=== PATIENT | female | born 1950 | race Two or more races ===

== ENCOUNTER 2017-04-03 21:43 | Emergency (ER) | payer OTHER ==
[~2017-04-03 21:43] MED LIST: COZAAR50 MG PO; LAC PO; LIPI20 PO; MAC100 PO; METFORMIN HCL850 MG PO; PREDNICOT20 MG PO
== END 2017-04-03 21:56 | disposition left against medical advice (07) ==
LOC: ED 21:43
DX: Z53.21 Procedure and treatment not carried out due to patient leaving prior to being seen by health care provider (principal)

== ENCOUNTER 2017-04-04 09:05 | Emergency (ER) | payer OTHER ==
[~2017-04-04] VITALS: Ht 154.9 cm; Wt 65.0 kg
[2017-04-04 09:08] VITALS: BP 148/62
== END 2017-04-04 11:00 | disposition home or self-care (01) ==
LOC: ED 09:05
DX: S96.911A Strain of unspecified muscle and tendon at ankle and foot level, right foot, initial encounter (principal); E11.9 Type 2 diabetes mellitus without complications; I10 Essential (primary) hypertension; E78.5 Hyperlipidemia, unspecified; X50.1XXA Overexertion from prolonged static or awkward postures, initial encounter; Y93.89 Activity, other specified; Y99.8 Other external cause status; Y92.89 Other specified places as the place of occurrence of the external cause
CPT/HCPCS: J3010; Q0092

== ENCOUNTER 2017-11-13 09:43 | Inpatient (IN) | payer OTHER ==
[~2017-11-13] VITALS: Ht 154.9 cm; Wt 63.5 kg
[2017-11-13 09:50] VITALS: Ht 154.9 cm; Wt 63.5 kg
[2017-11-13 10:23] LABS: BASOPHIL % 0.6 % (0-2); PLATELET COUNT 291 x10^3mcL (130-400); RED CELL DISTRIBUTION WIDTH 12.8 % (11.5-14.5)
[2017-11-13 10:35] LABS: CALCIUM 8.6 mg/dL (8.5-10.1); CARBON DIOXIDE 27.1 mmol/L (21-32); POTASSIUM SERUM 4.1 mmol/L (3.5-5.1)
[2017-11-13 10:39] LABS: BILIRUBIN TOTAL 0.4 mg/dL (0.20-1.00); TOTAL PROTEIN, SERUM 7.6 g/dL (6.4-8.2)
[2017-11-13 12:26] LABS: UA SPECIFIC GRAVITY 1.015 (1.005-1.035); microscopic required? YES; urine erythrocyte NEGATIVE (NEGATIVE)
[2017-11-13 13:01] LABS: MAGNESIUM 2.1 mg/dL (1.8-2.4)
[2017-11-13 13:03] LABS: CHOLESTEROL/HDL RATIO 3.7
[2017-11-13 13:11] VITALS: BP 139/70
[2017-11-13 13:12] LABS: FREE T4 1.22 ng/dL (0.76-1.46); FREE THYROXINE INDEX 2.5 ug/dL (1.4-4.5)
[2017-11-13 13:54] LABS: T3 TOTAL 0.91 ng/mL
[2017-11-13 14:28] LABS: AMPHETAMINE QUAL UR NONE DETECTED (NEG <=1000)
[2017-11-13] MEDS ORDERED: METOPROLOL SUCC25 M2 PO (15:49)
[2017-11-13] MEDS ORDERED: NEURONTIN100 MG PO (15:51)
[2017-11-13] MEDS ORDERED: PHEDML PO (15:53)
[2017-11-13] MEDS ORDERED: LIPI20 PO (15:53)
[2017-11-13 17:35] VITALS: BP 148/79
[2017-11-13 21:29] VITALS: BP 154/71
[2017-11-14 05:43] VITALS: BP 139/71
[2017-11-14 06:33] LABS: CALCIUM 8.6 mg/dL (8.5-10.1); CARBON DIOXIDE 26.7 mmol/L (21-32); CHLORIDE SERUM 104 mmol/L (98-107); CREATININE SERUM 0.7 mg/dL (0.6-1.0); GFR1 > 60 mL/min; GLUCOSE SERUM 119 mg/dL (74-106); POTASSIUM SERUM 4.9 mmol/L (3.5-5.1); SODIUM SERUM 138 mmol/L (136-145)
[2017-11-14 07:10] LABS: BASOPHIL % 0.6 % (0-2); PLATELET COUNT 299 x10^3mcL (130-400); RED CELL DISTRIBUTION WIDTH 12.7 % (11.5-14.5)
[2017-11-14 10:04] VITALS: BP 127/61
[2017-11-14 13:30] VITALS: BP 142/69
[2017-11-14 16:52] VITALS: BP 125/61
[2017-11-14 20:52] VITALS: BP 150/69
[2017-11-15 05:34] VITALS: BP 139/69
[2017-11-15 06:03] LABS: BASOPHIL % 0.5 % (0-2); PLATELET COUNT 315 x10^3mcL (130-400); RED CELL DISTRIBUTION WIDTH 13.1 % (11.5-14.5)
[2017-11-15 06:33] LABS: CALCIUM 8.8 mg/dL (8.5-10.1); CHLORIDE SERUM 97 mmol/L (98-107); CREATININE SERUM 0.8 mg/dL (0.6-1.0); GFR1 > 60 mL/min; GLUCOSE SERUM 111 mg/dL (74-106); POTASSIUM SERUM 4.6 mmol/L (3.5-5.1); SODIUM SERUM 135 mmol/L (136-145)
[2017-11-15] MEDS ORDERED: LEVAQUIN750 MG PO (09:16)
[2017-11-15] MEDS ORDERED: CLINDAMYCIN HC300 MG PO (09:16)
[2017-11-15] MEDS ORDERED: BD LACTINEX1.4 MG PO (09:17)
[2017-11-15 09:20] VITALS: BP 124/64
[2017-11-15 09:42] VITALS: BP 124/64
[2017-11-15] MEDS ORDERED: ROBL PO (10:28)
[2017-11-15 12:18] VITALS: BP 124/64
== END 2017-11-15 13:06 | disposition home or self-care (01) | DRG 152 ==
LOC: ED 09:43 → DU 11:29
PROVIDERS: Emergency Medicine; Family Medicine
DX: J06.9 Acute upper respiratory infection, unspecified (principal); N17.0 Acute kidney failure with tubular necrosis; E44.0 Moderate protein-calorie malnutrition; N39.0 Urinary tract infection, site not specified; B95.1 Streptococcus, group B, as the cause of diseases classified elsewhere; E86.0 Dehydration; I10 Essential (primary) hypertension; E11.9 Type 2 diabetes mellitus without complications; E78.00 Pure hypercholesterolemia, unspecified; Z68.27 Body mass index [BMI] 27.0-27.9, adult; Z79.84 Long term (current) use of oral hypoglycemic drugs
CPT/HCPCS: 82962; 83880; 84439; 94150; J0696; J1885; J1956; J3490; J7030; J7613; J7620; J7644; Q0092

== ENCOUNTER 2018-09-01 18:11 | Emergency (ER) | payer OTHER ==
[~2018-09-01] VITALS: Ht 154.9 cm; Wt 65.3 kg
[~2018-09-01 18:11] MED LIST changes: +BD LACTINEX1.4 MG PO; +CLINDAMYCIN HC300 MG PO; +LEVAQUIN750 MG PO; +METOPROLOL SUCC25 M2 PO; +NEURONTIN100 MG PO; +PHEDML PO; +ROBL PO
[2018-09-01 18:14] VITALS: Ht 154.9 cm; Wt 65.3 kg
[2018-09-01 19:25] LABS: BASOPHIL % 1.2 % (0-2); PLATELET COUNT 226 x10^3mcL (130-400); RED CELL DISTRIBUTION WIDTH 12.5 % (11.5-14.5)
[2018-09-01 19:37] LABS: CALCIUM 9.2 mg/dL (8.5-10.1); CARBON DIOXIDE 26.8 mmol/L (21-32); CREATININE SERUM 1.1 mg/dL (0.6-1.0); POTASSIUM SERUM 4.6 mmol/L (3.5-5.1)
[2018-09-01 19:44] LABS: ALBUMIN 3.5 g/dL (3.4-5.0); BILIRUBIN TOTAL 0.2 mg/dL (0.20-1.00); TOTAL PROTEIN, SERUM 7.1 g/dL (6.4-8.2)
[2018-09-01 21:30] VITALS: BP 140/68
== END 2018-09-01 21:30 | disposition home or self-care (01) ==
LOC: ED 18:11
PROVIDERS: Emergency Medicine
DX: J20.9 Acute bronchitis, unspecified (principal); I10 Essential (primary) hypertension; E11.9 Type 2 diabetes mellitus without complications; E78.00 Pure hypercholesterolemia, unspecified
CPT/HCPCS: 36415; 83880; Q0092

== ENCOUNTER 2018-10-28 10:10 | Emergency (ER) | payer OTHER ==
[~2018-10-28] VITALS: Ht 154.9 cm; Wt 64.4 kg
[2018-10-28 10:12] VITALS: BP 121/83; Ht 154.9 cm; Wt 64.4 kg
== END 2018-10-28 10:54 | disposition home or self-care (01) ==
LOC: ED 10:10
DX: N39.0 Urinary tract infection, site not specified (principal); I10 Essential (primary) hypertension; E11.9 Type 2 diabetes mellitus without complications; E78.00 Pure hypercholesterolemia, unspecified
CPT/HCPCS: J1885

== ENCOUNTER 2018-11-04 09:41 | Emergency (ER) | payer OTHER ==
[~2018-11-04] VITALS: Ht 154.9 cm; Wt 65.3 kg
[2018-11-04 09:48] VITALS: Ht 154.9 cm; Wt 65.3 kg
[2018-11-04 11:27] LABS: CALCIUM 8.5 mg/dL (8.5-10.1); CARBON DIOXIDE 28.1 mmol/L (21-32); CHLORIDE SERUM 101 mmol/L (98-107); CREATININE SERUM 0.8 mg/dL (0.6-1.0); GFR1 > 60 mL/min; GLUCOSE SERUM 159 mg/dL (74-106); POTASSIUM SERUM 3.5 mmol/L (3.5-5.1); SODIUM SERUM 135 mmol/L (136-145)
[2018-11-04 11:31] LABS: ALBUMIN 3.6 g/dL (3.4-5.0); ALKALINE PHOSPHATASE 51 U/L (46-116); ALT/SGPT 41 U/L (14-59); AST/SGOT 25 U/L (15-37); BILIRUBIN TOTAL 0.42 mg/dL (0.20-1.00)
[2018-11-04 11:43] LABS: BASOPHIL % 0.7 % (0-2); PLATELET COUNT 184 x10^3mcL (130-400); RED CELL DISTRIBUTION WIDTH 13.3 % (11.5-14.5)
[2018-11-04 11:57] LABS: microscopic required? YES; urine erythrocyte NEGATIVE (NEGATIVE)
[2018-11-04 12:32] VITALS: BP 154/71
== END 2018-11-04 12:32 | disposition home or self-care (01) ==
LOC: ED 09:41
PROVIDERS: Emergency Medicine
DX: J06.9 Acute upper respiratory infection, unspecified (principal); N39.0 Urinary tract infection, site not specified; I10 Essential (primary) hypertension; E11.9 Type 2 diabetes mellitus without complications; E78.00 Pure hypercholesterolemia, unspecified
CPT/HCPCS: 87804; J7030; Q0092

== ENCOUNTER 2019-01-29 09:05 | Emergency (ER) | payer OTHER ==
[~2019-01-29] VITALS: Ht 154.9 cm; Wt 63.5 kg
[2019-01-29 09:12] VITALS: Ht 154.9 cm; Wt 63.5 kg
[2019-01-29 09:30] LABS: BASOPHIL % 0.9 % (0-2); PLATELET COUNT 209 x10^3mcL (130-400); RED CELL DISTRIBUTION WIDTH 13.2 % (11.5-14.5)
[2019-01-29 09:37] LABS: CALCIUM 9.7 mg/dL (8.5-10.1); CARBON DIOXIDE 26.4 mmol/L (21-32); CHLORIDE SERUM 99 mmol/L (98-107); CREATININE SERUM 0.8 mg/dL (0.6-1.0); GFR1 > 60 mL/min; GLUCOSE SERUM 153 mg/dL (74-106); POTASSIUM SERUM 4.6 mmol/L (3.5-5.1); SODIUM SERUM 135 mmol/L (136-145)
[2019-01-29 09:42] LABS: ALBUMIN 3.6 g/dL (3.4-5.0); ALKALINE PHOSPHATASE 63 U/L (46-116); ALT/SGPT 39 U/L (14-59); AST/SGOT 20 U/L (15-37); BILIRUBIN TOTAL 0.47 mg/dL (0.20-1.00); TOTAL PROTEIN, SERUM 7.1 g/dL (6.4-8.2)
[2019-01-29 10:40] VITALS: BP 151/80
== END 2019-01-29 10:40 | disposition home or self-care (01) ==
LOC: ED 09:05
DX: R07.89 Other chest pain (principal); R05 Cough; E11.9 Type 2 diabetes mellitus without complications; I10 Essential (primary) hypertension; Z79.84 Long term (current) use of oral hypoglycemic drugs; Z79.899 Other long term (current) drug therapy; Z98.890 Other specified postprocedural states
CPT/HCPCS: 36415; Q0092

== ENCOUNTER 2019-03-15 19:47 | Emergency (ER) | payer OTHER ==
[~2019-03-15] VITALS: Ht 154.9 cm; Wt 63.5 kg
[2019-03-15 19:51] VITALS: Ht 154.9 cm; Wt 63.5 kg
[2019-03-15 20:31] LABS: BASOPHIL % 0.5 % (0-2); PLATELET COUNT 205 x10^3mcL (130-400); RED CELL DISTRIBUTION WIDTH 13.2 % (11.5-14.5)
[2019-03-15 20:40] LABS: CALCIUM 9.7 mg/dL (8.5-10.1); CHLORIDE SERUM 98 mmol/L (98-107); CREATININE SERUM 0.9 mg/dL (0.6-1.0); GFR1 > 60 mL/min; GLUCOSE SERUM 122 mg/dL (74-106); POTASSIUM SERUM 3.7 mmol/L (3.5-5.1); SODIUM SERUM 135 mmol/L (136-145)
[2019-03-15 20:45] LABS: ALKALINE PHOSPHATASE 64 U/L (46-116); ALT/SGPT 40 U/L (14-59); AST/SGOT 27 U/L (15-37); BILIRUBIN TOTAL 0.3 mg/dL (0.20-1.00); TOTAL PROTEIN, SERUM 7.6 g/dL (6.4-8.2)
[2019-03-15 21:32] VITALS: BP 148/62
== END 2019-03-15 21:32 | disposition home or self-care (01) ==
LOC: ED 19:47
PROVIDERS: Emergency Medicine
DX: R55 Syncope and collapse (principal); I10 Essential (primary) hypertension; E11.9 Type 2 diabetes mellitus without complications; E78.00 Pure hypercholesterolemia, unspecified
CPT/HCPCS: 82962; J7030

== ENCOUNTER 2019-07-23 14:02 | Emergency (ER) | payer OTHER, MEDICAID ==
[~2019-07-23] VITALS: Ht 154.9 cm; Wt 64.9 kg
[2019-07-23 14:07] VITALS: Ht 154.9 cm; Wt 64.9 kg
[2019-07-23 16:10] VITALS: BP 127/54
== END 2019-07-23 16:10 | disposition home or self-care (01) ==
LOC: ED 14:02
DX: B34.9 Viral infection, unspecified (principal); I10 Essential (primary) hypertension; E11.9 Type 2 diabetes mellitus without complications; E78.00 Pure hypercholesterolemia, unspecified
CPT/HCPCS: 87804; J1885

== ENCOUNTER 2019-07-25 10:56 | Emergency (ER) | payer OTHER, MEDICAID ==
[~2019-07-25] VITALS: Ht 160 cm; Wt 63.5 kg
[2019-07-25 11:12] VITALS: Ht 160 cm; Wt 63.5 kg
[2019-07-25 12:38] VITALS: BP 148/92
== END 2019-07-25 12:38 | disposition home or self-care (01) ==
LOC: ED 10:56
DX: E11.649 Type 2 diabetes mellitus with hypoglycemia without coma (principal); R53.1 Weakness; I10 Essential (primary) hypertension; E11.9 Type 2 diabetes mellitus without complications; E78.00 Pure hypercholesterolemia, unspecified
CPT/HCPCS: 82962; 87804